=== PATIENT | male | born 1980 | race Caucasian/White ===

== ENCOUNTER 2020-10-27 11:49 | Emergency (ER) | payer OTHER, SELFPAY ==
[2020-10-27 11:57] VITALS: BP 132/73; PULSE 98; RESP 16; TEMP 36.7; O2SAT 99; BMI 21.7
--- NOTE | 2020-10-27 12:05 | HMH.EDUTC ---
[facility] Disposition Clinical Impression: Encounter for laboratory testing for COVID-19 virus Disposition: Home, Self-Care Condition on Discharge: Good Instructions: Preventing the Spread of Coronavirus Discharge Instructions Additional Instructions: *Monitor Temp, Over the counter Motrin or Tylenol as directed/as needed Tylenol every 4 hours and Motrin every 6 hours (as long as your family doctor has told you that you can take it) for fever or pain. and straight to ER if unable to lower temp less than 101.0 after medication given *Warm salt water gargles may help to soothe the throat *Throat Lozenges *Warm fluids like tea with honey may help to soothe the throat *Sleep elevated *Humidifier/Vaporizer *Flonase 2 sprays in each nostril daily but be aware that it may take 2-3 days before you notice improvement Follow up IMMEDIATELY for new or worsening symptoms or no Noticeable improvement over the next 48-72 hours. 911 for difficulty breathing or swallowing You was tested for today for COVID19 your test result should be back in the next 24-48 hours, you may call to the [facility] later today or tomorrow to see if your test results are back and the result [phone] [facility] hours are 9am-9pm You was given a handout with instructions for Self Quarantine and Self isolation for while you wait on test results and what to do if they are positive If you are positive the Health Dept will be contacting you also Prescriptions: Albuterol Sulfate [Proventil-HFA 90mcg/puff Inh] 1 - 2 puffs IH Q4HP PRN #1 inh PRN Reason: Shortness Of Breath Transmission Status: Pending to [facility] # Fluticasone Propionate [Flonase 50mcg nasal spray 16gm] 1 spr NS DAILY #1 bottle Transmission Status: Pending to [facility] # Referrals: PCP,No [Primary Care Provider] - As needed Forms: Work/School Release Time of Disposition: 12:08 Medical Decision Making - Sebastien Inquiry Pt receiving controlled substance: No Sebastien was queried for this patient: No Vital Signs: 10/27/20 11:57 Temperature 98.0 F Temperature Source Oral Pulse Rate [Right Brachial] 98 H Respiratory Rate 16 Blood Pressure [Right Arm] 132/73 Blood Pressure Mean [Right Arm] 92 Blood Pressure Source [Right Arm] Automatic Cuff Blood Pressure Position [Right Arm] Sitting 02 Sat by Pulse Oximetry 99 Oxygen Delivery Method Room Air Orders (Tests/Meds): ORDERS Category Date Time Status Covid-19 Nasal PCR Sendout [facility] 10/27/20 11:55 Received [facility] HPI - General Stated complaint: covid test Time Seen by Provider: 10/27/20 12:05 Mode of Arrival: Ambulatory Source of Information: Patient Limitations: No Limitations Description of Symptoms (Recalled from Triage Doc. 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 HEENT Symptoms (Recalled from RN notes): No Resp Symptoms (Recalled from RN notes): No Skin Symptoms (Recalled from RN notes): No MS Symptoms (Recalled from RN notes): No Functional Status (Recalled from RN notes): WNL - History of Present Illness Provider Complaint: Patient state that he has bad allergies States that he has been having some nasal congestion and runny nose like he commonly has when his allergies act up but his work would not let him return to work until he was tested for COVID and it was negative State that he is also out of his albuterol inhaler and flonase and wanted to see if he could get a refill - Related Data Home Medications Medication Instructions Recorded Confirmed Cetirizine HCl 10 mg PO DAILY 07/31/19 07/31/19 Previous Rx's Medication Instructions Recorded loratadine 10 mg tablet 10 mg PO DAILY #30 tab 10/21/19 hydrochlorothiazide 12.5 mg tablet 12.5 mg PO DAILY #90 tab 04/15/20 lisinopril 10 mg tablet 10 mg PO DAILY #90 tab 04/15/20 Albuterol Sulfate [Proventil-HFA 1 - 2 puffs IH Q4HP PRN #1 inh 10/27/20 90mcg/puff Inh] Fluticasone Propion
[2020-10-27 12:09] VITALS: BP 132/73; PULSE 98; RESP 16; TEMP 36.7; O2SAT 99
[2020-10-28 15:55] LABS: Covid-19 Nasal PCR Sendout Lex Not Detected
== END 2020-10-27 12:11 | disposition home or self-care (01) ==
PROVIDERS: Emergency Provider Nurse Practitioner
DX: Z20.828 Contact with and (suspected) exposure to other viral communicable diseases (principal); I10 Essential (primary) hypertension; F17.210 Nicotine dependence, cigarettes, uncomplicated
CPT/HCPCS: 99201; U0004

== ENCOUNTER 2020-11-12 03:04 | Emergency (ER) | payer OTHER, SELFPAY ==
[2020-11-12 03:06] VITALS: BP 140/99; PULSE 110; RESP 16; TEMP 36.7; O2SAT 98; BMI 20.9
--- NOTE | 2020-11-12 03:13 | ECG_ITS ---
APPROVED REPORT Exam: Resting ECG HR:116 bpm ECG Measurements Heart Rate 116 AXES MA 144 P 84 QRSd 82 QRS 141 QT 312 T 73 QTc 433 Conclusion Sinus tachycardia Biatrial enlargement Right axis deviation Pulmonary disease pattern Abnormal ECG Electronically signed by : Michael Zaldivar, 11/13/2020 07:11:46
--- NOTE | 2020-11-12 03:22 | XR_ITS ---
PROCEDURE: XR CHEST 2V CLINICAL HISTORY: radiating pain down neck COMPARISON: No exams were available for comparison FINDINGS: The cardiomediastinal silhouette and pulmonary vascularity are within normal limits. The lungs are clear without infiltrates, suspicious nodules, or pleural effusions. No acute bony abnormalities. IMPRESSION: No acute findings. Dictated by: Jeffrey Justice MD 11/12/2020 05:11 Jeffrey Justice MD in [place] 11/12/2020 05:11
--- NOTE | 2020-11-12 03:23 | CT_ITS ---
PROCEDURE: CT CERVICAL SPINE WO CON CLINICAL INDICATION: pain in left neck down left arm COMPARISON: No exams were available for comparison TECHNIQUE: Axial images obtained with sagittal and coronal reformats. All CT scans at the facility use one or more dose reduction, viz: automated exposure control, ma/kV adjustment per patient size (including targeted exams where dose is matched to indication, i.e. head), or iterative reconstruction technique. Axial spiral CT scanning performed of the cervical spine beginning at the base of the skull and continuing to the upper T-spine. 3-D multiplanar reconstruction with 3-D manipulation of volumetric data set in image rendering was completed by the radiologist and/or technologist with the supervision of the radiologist on independent workstation. FINDINGS: There is normal alignment. There is reversal of the cervical lordosis which could be due to patient positioning or muscle spasm. C2-C3: Unremarkable. C3-C4: Unremarkable. C4-C5: Unremarkable. C5-C6: Mild degenerative disc disease. C6-C7: Degenerative disc disease with endplate hypertrophic changes. There is a small right paracentral and foraminal disc osteophyte complex causing right-sided foraminal and lateral recess narrowing. Uncovertebral hypertrophy is present on the left causing left-sided foraminal narrowing. Canal stenosis is present at this level at 9 mm. C7-T1: Unremarkable. IMPRESSION: Reversal of lordosis which may be due to patient positioning or muscle spasm. Degenerative disc disease at C5-C6. At C6-C7 there is degenerative disc disease disc disease with endplate hypertrophic changes. There is a small right paracentral and foraminal disc osteophyte complex causing right-sided foraminal and lateral recess narrowing. Uncovertebral hypertrophy is present on the left causing left-sided foraminal narrowing. Canal stenosis is present at this level at 9 mm. Dictated by: Jeffrey Justice MD 11/12/2020 05:45 Jeffrey Justice MD in [place] 11/12/2020 05:45
[2020-11-12 03:36] VITALS: BP 141/91; PULSE 89; RESP 15; O2SAT 97
[2020-11-12 03:38] LABS: Basophils # 0.1 K/mm3 (0-0.2); Basophils % 0.8 % (0.1-2.0); Eosinophils # 0.4 K/mm3 (0.0-0.4); Eosinophils % 2.1 % (0.1-12.0); Hematocrit 49.5 % (42.0-52.0); Lymphocytes # 3.8 K/mm3 (0.7-4.5); Lymphocytes % 20.7 % (10-50); Mean Corpuscular HGB Conc 36.4 g/dL (31.8-35.4); Mean Corpuscular Hemoglobin 32.5 pg (27.0-31.2); Mean Corpuscular Volume 89.3 fl (80-94); Mean Platelet Volume 8.1 fl (7.4-10.4); Monocytes # 1.2 K/mm3 (0.1-1.0); Monocytes % 6.2 % (1.7-9.3); Neutrophils % 70.2 % (37.0-80.0); Platelet Count 302 K/mm3 (142-424); Red Blood Count 5.54 M/mm3 (4.60-6.20); Red Cell Distribution Width 13.2 % (11.5-17.5); White Blood Count 18.5 K/mm3 (4.8-10.8)
[2020-11-12 03:42] LABS: MANUAL DIFFERENTIAL MANUAL DIFFERENTIAL (MANUAL DIFF)
[2020-11-12 03:43] LABS: Alanine Aminotransferase 19 U/L (12-78); Albumin Level 5.2 g/dl (3.5-5.0); Alkaline Phosphatase 73 U/L (38-126); Anion Gap 14.6 mEq/L (5-15); Aspartate Amino Transferase 34 U/L (17-59); Bilirubin,Direct 0.2 mg/dl (0.0-0.4); Bilirubin,Indirect 0.6 mg/dL (0.0-0.9); Bilirubin,Total 0.8 mg/dl (0.2-1.3); Bilirubin,Unconjugated 0.6 mg/dL (0.0-1.1); Blood Urea Nitrogen 8 mg/dl (9-20); Calcium 10.1 mg/dl (8.4-10.2); Carbon Dioxide 26 mmol/L (22.0-30.0); Chloride 101 mmol/L (98-107); Creatinine Clearance Estimated 120 mL/min (50-200); Estimated Glomerular Filt Rate 106 ml/min (>60); GFR (African American) 128 ML/MIN (>60); Glucose 128 mg/dl (74-100); Potassium 3.6 mmoL/L (3.5-5.1); Sodium 138 mmol/L (136-145); Total Protein,Serum 8.6 g/dl (6.3-8.2)
[2020-11-12 03:56] LABS: Troponin I < 0.01 ng/ml (0.00-0.034)
--- NOTE | 2020-11-12 04:02 | HMH.EDGENADL ---
ED Disposition Clinical Impression: Cervical radicular pain Disposition: Home, Self-Care Condition on Discharge: Good Instructions: DI for Neck Pain Additional Instructions: use meds and see pcp for follow up Prescriptions: predniSONE [Prednisone 20mg Tab] 20 mg PO BID #10 tab Transmission Status: Pending to [facility] Referrals: PCP,No [Primary Care Provider] - - Critical Care Critical Care Time: No Attestation: On 11/12/20, the high probability of a clinically significant, sudden or life threatening deterioration of the following system(s) required my full and direct attention, intervention and personal management. The time I documented below is in addition to time spent performing reported procedures but includes the following listed in this critical care notation. Medical Decision Making - Medical Records Medical records reviewed: Yes: I reviewed the patient's medical records. - Sebastien Inquiry Pt receiving controlled substance: No Vital Signs: 11/12/20 03:06 11/12/20 03:36 11/12/20 04:06 Temperature 98.1 F Temperature Source Oral Pulse Rate [Left Radial] 110 H 89 96 H Respiratory Rate 16 15 15 Blood Pressure [Right Arm] 140/99 H 141/91 H 136/89 Blood Pressure Mean [Right Arm] 112 107 104 Blood Pressure Source [Right Arm] Automatic Cuff Automatic Cuff Blood Pressure Position [Right Arm] Sitting Sitting Sitting 02 Sat by Pulse Oximetry 98 97 99 Oxygen Delivery Method Room Air Room Air Room Air - Lab Data Lab results reviewed: Yes: I reviewed the patient's lab results. Lab Results 11/12/20 03:15: WBC 18.5 H, RBC 5.54, Hgb 18.0, Hct 49.5, MCV 89.3, MCH 32.5 H, MCHC 36.4 H, RDW 13.2, Plt Count 302, MPV 8.1, Neut % (Auto) 70.2, Lymph % (Auto) 20.7, [place] % (Auto) 6.2, Eos % (Auto) 2.1, Baso % (Auto) 0.8, Neut # (Auto) 13.0 H, Lymph # (Auto) 3.8, [place] # (Auto) 1.2 H, Eos # (Auto) 0.4, Baso # (Auto) 0.1, Total Counted 100, Neutrophils % (Manual) 74, Lymphocytes % (Manual) 20, Monocytes % (Manual) 4, Eosinophils % (Manual) 2, Platelet Estimate Normal, RBC Morphology Normal 11/12/20 03:15: Sodium 138, Potassium 3.6, Chloride 101, Carbon Dioxide 26, Anion Gap 14.6, BUN 8 L, Creatinine 0.80, Estimated Creat Clear 120, Estimated GFR 106, Est GFR ( Amer) 128, Glucose 128 H, Calcium 10.1, Total Bilirubin 0.8, Direct Bilirubin 0.2, Conjugated Bilirubin 0.0, Indirect Bilirubin 0.6, Unconjugated Bilirubin 0.6, AST 34, ALT 19, Alkaline Phosphatase 73, Troponin I < 0.01, Total Protein 8.6 H, Albumin 5.2 H Result diagrams: 11/12/20 03:15 11/12/20 03:15 Orders (Tests/Meds): ED MEDICATIONS Generic Name Dose Route Start Last Admin Trade Name Freq PRN Reason Stop Dose Admin Sodium Chloride 1,000 mls @ 999 mls/hr 11/12/20 03:30 11/12/20 03:27 Sod Chlor 0.9% 1000ml Bag IV 11/12/20 04:30 999 mls/hr .Q1H1M KUSHAL Administration Methylprednisolone Sodium Succinate 125 mg 11/12/20 04:19 Methylprednisolone Sod Succ 125mg Vial IV 11/12/20 04:20 ONCE ONE Discontinued Medications Generic Name Dose Route Start Last Admin Trade Name Freq PRN Reason Stop Dose Admin Ketorolac Tromethamine 30 mg 11/12/20 03:26 11/12/20 03:27 Ketorolac 30mg/Ml Vial IV 11/12/20 03:27 30 mg ONCE ONE Administration ORDERS Category Date Time Status CT cervical spine wo con Stat Cat Scan 11/12/20 03:23 Taken XR chest 2V Stat Exams 11/12/20 03:22 Taken Troponin I Q3H Lab 11/12/20 06:30 Ordered Troponin I Q3H Lab 11/12/20 09:30 Ordered - Radiology Data #1 Image(s): Chest Image Reviewed: Yes I reviewed the patient's radiology image Preliminary Findings: Normal/NAD - CT Data CT Scan: C-Spine Time Received: 04:[address] Reviewed: Yes: I have viewed the radiologist's interpretation Preliminary Findings: Abnormal (see report ) - ECG Data Tracing #1 Arrhythmias present: sinus tach Ischemic changes: non-specific ST-T wave changes General Adult HPI -
[2020-11-12 04:06] VITALS: BP 136/89; PULSE 96; RESP 15; O2SAT 99
[2020-11-12 04:15] LABS: Eosinophils % 2 % (0-3); Lymphocytes % 20 % (10-50); Monocytes % 4 % (2-9); Neutrophils % 74 % (42-76); Platelet Estimate Normal; RBC Morphology Normal; Total Cells Counted 100
[2020-11-12 04:29] VITALS: BP 151/88; PULSE 98; RESP 16; TEMP 36.7; O2SAT 99
== END 2020-11-12 04:31 | disposition home or self-care (01) ==
PROVIDERS: Emergency Provider Emergency Medicine
DX: M54.12 Radiculopathy, cervical region (principal); I10 Essential (primary) hypertension; Z79.899 Other long term (current) drug therapy
CPT/HCPCS: 71046; 72125; 80048; 80076; 84484; 85007; 85025; 93005; 96365; 96375; 99283

== ENCOUNTER 2020-11-23 09:06 | Emergency (ER) | payer OTHER, SELFPAY ==
[2020-11-23 09:22] VITALS: BP 133/79; PULSE 98; RESP 18; TEMP 36.6; O2SAT 99; BMI 20.3
--- NOTE | 2020-11-23 09:34 | HMH.EDUTC ---
[facility] [place] Clinical Impression: Cervical radicular pain Disposition: Home, Self-Care Condition on Discharge: Good Instructions: DI for Shoulder Pain, DI for Chronic Neck Pain Additional Instructions: Go home and rest. It would be best if you rested tomorrow too. No heavy lifting. No twisting. Take the oral medications as directed. The muscle relaxer (robaxin) will make you drowsy, so don't drive or operate heavy machinery after taking it. Follow up with your regular doctor. GO TO THE ER FOR ANY WORSENING SYMPTOMS OR CONCERN, Prescriptions: predniSONE [Prednisone 20mg Tab] 20 mg PO BID 4 Days #8 tab Transmission Status: Received by [facility] Methocarbamol [Robaxin 500mg Tab] 500 mg PO BIDP PRN #30 tab PRN Reason: Muscle Spasm Transmission Status: Received by [facility] [employer] Referrals: PCP,No [Primary Care Provider] - Forms: Work/School Release Time of Disposition: 09:41 Medical Decision Making - Medical Records Medical records reviewed: No: I reviewed the patient's medical records. - Sebastien Inquiry Pt receiving controlled substance: No Vital Signs: 11/23/20 09:22 11/23/20 09:49 Temperature 97.8 F 97.8 F Temperature Source Oral Pulse Rate 98 H Pulse Rate [Left] 98 H Respiratory Rate 18 18 Blood Pressure 133/79 Blood Pressure [Left Arm] 133/79 Blood Pressure Mean [Left Arm] 97 Blood Pressure Source [Left Arm] Automatic Cuff Blood Pressure Position [Left Arm] Sitting 02 Sat by Pulse Oximetry 99 Oxygen Delivery Method Room Air [facility] - General Stated complaint: pinched nerve Time Seen by Provider: 11/23/20 09:34 Mode of Arrival: Ambulatory Source of Information: Patient Limitations: No Limitations Description of Symptoms (Recalled from Triage Doc. by RN): Pinched nerve and would like to get another prescription of steroids and a couple days off work. HEENT Symptoms (Recalled from RN notes): No Resp Symptoms (Recalled from RN notes): No Skin Symptoms (Recalled from RN notes): No MS Symptoms (Recalled from RN notes): Yes Functional Status (Recalled from RN notes): wnl - History of Present Illness Provider Complaint: He states that he has been having left shoulder pain that radiates down his left arm. He has diagnosed with a pinched nerve in that shoulder before. He states tthat he is having the same symptoms as he had before and he needs a round of steroids to get it better. - Related Data Home Medications Medication Instructions Recorded Confirmed lisinopriL [Prinivil 10mg Tablet] 10 mg PO DAILY 11/12/20 11/23/20 Previous Rx's Medication Instructions Recorded Methocarbamol [Robaxin 500mg Tab] 500 mg PO BIDP PRN #30 tab 11/23/20 predniSONE [Prednisone 20mg 20 mg PO BID 4 Days #8 tab 11/23/20 Tab] Allergies Allergy/AdvReac Type Severity Reaction Status Date / Time amitriptyline [From Elavil] Allergy Verified 11/23/20 09:29 - Worker's Comp Is this a Worker's Comp case?: No Is this an [facility] Worker's Comp?: No Is this a [place] Worker's Comp?: No [facility] History - Hepatitis A Screen Drug use history?: No High risk sexual behaviors?: No History of sexually transmitted infection?: No Currently employed?: No Childcare worker?: No Do you have indoor plumbing?: Yes Do you have electricity?: Yes Attestation statement:: This patient has been screened for Hepatitis A risk factors. I have reviewed the patient's past medical history: Yes Medical History: Reports:: Hypertension Other Surgeries: Yes: No Previous Surgery - Social History Smoking Status: Current every day smoker Tobacco Type: cigars # Packs/Day (cigarettes): 1 Alcohol Intake: never Substance Use Type: marijuana Occupational Status: other Housing: house Family Hx:: Hypertension ROS Obtained: Yes All systems reviewed & no additional complaints - Constitutional Constitutional: Denies chills, Denies fever(s) - Musculoskeletal Musculoskeleta
[2020-11-23 09:49] VITALS: BP 133/79; PULSE 98; RESP 18; TEMP 36.6; O2SAT 99
== END 2020-11-23 09:50 | disposition home or self-care (01) ==
PROVIDERS: Emergency Provider Nurse Practitioner Family
DX: M54.12 Radiculopathy, cervical region (principal); I10 Essential (primary) hypertension; F17.210 Nicotine dependence, cigarettes, uncomplicated; F12.10 Cannabis abuse, uncomplicated
CPT/HCPCS: 99201